=== PATIENT | male | born 1960 | race Caucasian/White ===

== ENCOUNTER 2022-10-18 05:07 | Day surgery (SDC) | payer OTHER ==
[2022-10-17 08:45] VITALS: BMI 31.7
[2022-10-18 09:26] VITALS: RESP 18
[2022-10-18 09:28] VITALS: BP 132/70; PULSE 64; TEMP 97.6
== END 2022-10-18 09:49 | disposition home or self-care (01) ==
LOC: JASU-ENDO 05:07
PROVIDERS: ATTEND Internal Medicine Gastroenterology
PROC: 0DBK8ZX Excision of Ascending Colon, Via Natural or Artificial Opening Endoscopic, Diagnostic (ICD-10-PCS; principal; 2022-10-18 09:30)
DX: Z12.11 Encounter for screening for malignant neoplasm of colon (principal); K57.30 Diverticulosis of large intestine without perforation or abscess without bleeding; D12.2 Benign neoplasm of ascending colon; K63.89 Other specified diseases of intestine
CPT/HCPCS: 88305-TC